=== PATIENT | female | born 1965 | race Caucasian/White ===

== ENCOUNTER 2023-09-24 07:05 | Outpatient (OUT) | payer BC, SELFPAY ==
--- NOTE | 2023-09-24 | MM_ITS ---
Patient Name: CRISTIANE BARRAGAN MR#: [id number] : 1965 Exam Date: 09/24/2023 Ordering Doctor: DR Shad Price . RADIOLOGY REPORT PROCEDURE: MM TOMOSYNTHESIS SCREENING BI COMPARISON: MAMMO SHARLA PETERG DIG, 02/19/2011. INDICATIONS: screening mammogram Calculator Name NCI Breast Cancer Risk Assessment Tool 5 Year Breast Cancer Risk 1.00% Lifetime Breast Cancer Risk 6.60% Personal Breast Cancer No Personal Ovarian Cancer No Treatments None Family Cancers None LOCATION: [facility] BREAST COMPOSITION: Heterogeneously dense,which may obscure small masses. FINDINGS: DIAGNOSTIC CATEGORY 0--INCOMPLETE: NEED ADDITIONAL IMAGING EVALUATION. Scattered benign-appearing calcifications are present. Scattered benign-appearing lymph nodes are present. RIGHT BREAST: Focal 2.5 x 1.7 x 2.0 cm nodule 3 o'clock position, mid breast. Spot imaging and ultrasound follow-up required. LEFT BREAST: Focal lobular 1.2 x 0.9 cm nodule upper outer quadrant, mid breast, this lesion appears changed in configuration from the prior exam. Spot imaging and ultrasound follow-up required. RECOMMENDATIONS: ADDITIONAL MAMMOGRAPHIC VIEWS REQUIRED: BILATERAL BREASTS - spot compression views ULTRASOUND: BILATERAL BREASTS PLEASE NOTE: A NORMAL MAMMOGRAM DOES NOT EXCLUDE THE POSSIBILITY OF BREAST CANCER. A CLINICALLY SUSPICIOUS PALPABLE LUMP SHOULD BE BIOPSIED. Dictated by: Delfino Lora MD on 09/24/2023 at 08:49 Approved by: Delfino Loar MD on 09/24/2023 at 09:11
== END 2023-09-24 07:06 | disposition home or self-care (01) ==
LOC: MAMMO 07:05
PROVIDERS: PCP Family Medicine; Visit Provider Obstetrics & Gynecology
DX: Z12.31 Encounter for screening mammogram for malignant neoplasm of breast (principal); N63.21 Unspecified lump in the left breast, upper outer quadrant; N63.15 Unspecified lump in the right breast, overlapping quadrants
CPT/HCPCS: 77063; 77067

== ENCOUNTER 2023-10-12 09:01 | Outpatient (OUT) | payer BC, SELFPAY ==
--- NOTE | 2023-10-12 09:06 | US_ITS ---
Patient Name: CRISTIANE BARRAGAN MR#: [id number] : 1965 Exam Date: 10/12/2023 Ordering Doctor: DR Shad Price . RADIOLOGY REPORT PROCEDURE: MM DIAGNOSTIC MAMMO BI, 10/12/2023, 09:12 US BREAST BI LIMITED, 10/12/2023, 09:36 COMPARISON: MM TOMOSYNTHESIS SCREENING BI, 09/24/2023. MAMMO SHARLA DIAG DIG, 02/19/2011. INDICATIONS: Mammogram Abnormal R92.8 Calculator Name NCI Breast Cancer Risk Assessment Tool 5 Year Breast Cancer Risk 1.00% Lifetime Breast Cancer Risk 6.50% Personal Breast Cancer No Personal Ovarian Cancer No Treatments None Family Cancers Grandfather-paternal with lung cancer at age 65. LOCATION: [facility] BREAST COMPOSITION: Heterogeneously dense,which may obscure small masses. FINDINGS: DIAGNOSTIC CATEGORY 2--BENIGN FINDING: RIGHT BREAST: Spot magnification views demonstrate persistence of a partially circumscribed 3.4 x 1.9 x 2.0 cm mass. Ultrasound evaluation demonstrates a corresponding 3.5 x 1.5 x 0.8 cm benign appearing cystic fluid collection at the 2 o'clock position. Annual screening mammography recommended. LEFT BREAST: Spot magnification views demonstrate persistence of a lobular mass within posterior upper-outer quadrant. A mammogram from February 19, 2011 demonstrates a similar appearing mass within the upper-outer quadrant suspected to represent a lymph node. Ultrasound evaluation demonstrates a 10 x 9 x 4 mm lymph node with central vascular hilum at the 1 o'clock position corresponding to the mammographic findings. Annual screening mammography is recommended. Findings discussed with Dr. Price via telephone on October 13, 2023 at 9:14 a.m. RECOMMENDATIONS: ROUTINE MAMMOGRAM AND CLINICAL EVALUATION IN 12 MONTHS. PLEASE NOTE: A NORMAL MAMMOGRAM DOES NOT EXCLUDE THE POSSIBILITY OF BREAST CANCER. A CLINICALLY SUSPICIOUS PALPABLE LUMP SHOULD BE BIOPSIED. Dictated by: Aquilino Butterfield M.D. on 10/13/2023 at 08:57 Approved by: Aquilino Butterfield M.D. on 10/13/2023 at 09:16
--- NOTE | 2023-10-12 09:35 | MM_ITS ---
Patient Name: CRISTIANE BARRAGAN MR#: [id number] : 1965 Exam Date: 10/12/2023 Ordering Doctor: DR Shad Price . RADIOLOGY REPORT PROCEDURE: MM DIAGNOSTIC MAMMO BI, 10/12/2023, 09:12 US BREAST BI LIMITED, 10/12/2023, 09:36 COMPARISON: MM TOMOSYNTHESIS SCREENING BI, 09/24/2023. MAMMO SHARLA DIAG DIG, 02/19/2011. INDICATIONS: Mammogram Abnormal R92.8 Calculator Name NCI Breast Cancer Risk Assessment Tool 5 Year Breast Cancer Risk 1.00% Lifetime Breast Cancer Risk 6.50% Personal Breast Cancer No Personal Ovarian Cancer No Treatments None Family Cancers Grandfather-paternal with lung cancer at age 65. LOCATION: [facility] BREAST COMPOSITION: Heterogeneously dense,which may obscure small masses. FINDINGS: DIAGNOSTIC CATEGORY 2--BENIGN FINDING: RIGHT BREAST: Spot magnification views demonstrate persistence of a partially circumscribed 3.4 x 1.9 x 2.0 cm mass. Ultrasound evaluation demonstrates a corresponding 3.5 x 1.5 x 0.8 cm benign appearing cystic fluid collection at the 2 o'clock position. Annual screening mammography recommended. LEFT BREAST: Spot magnification views demonstrate persistence of a lobular mass within posterior upper-outer quadrant. A mammogram from February 19, 2011 demonstrates a similar appearing mass within the upper-outer quadrant suspected to represent a lymph node. Ultrasound evaluation demonstrates a 10 x 9 x 4 mm lymph node with central vascular hilum at the 1 o'clock position corresponding to the mammographic findings. Annual screening mammography is recommended. Findings discussed with Dr. Price via telephone on October 13, 2023 at 9:14 a.m. RECOMMENDATIONS: ROUTINE MAMMOGRAM AND CLINICAL EVALUATION IN 12 MONTHS. PLEASE NOTE: A NORMAL MAMMOGRAM DOES NOT EXCLUDE THE POSSIBILITY OF BREAST CANCER. A CLINICALLY SUSPICIOUS PALPABLE LUMP SHOULD BE BIOPSIED. Dictated by: Aquilino Butterfield M.D. on 10/13/2023 at 08:57 Approved by: Aquilino Butterfield M.D. on 10/13/2023 at 09:16
== END 2023-10-12 09:02 | disposition home or self-care (01) ==
LOC: MAMMO 09:01
PROVIDERS: PCP Family Medicine; Visit Provider Obstetrics & Gynecology
DX: Z01.419 Encounter for gynecological examination (general) (routine) without abnormal findings (principal); R92.8 Other abnormal and inconclusive findings on diagnostic imaging of breast; Z80.1 Family history of malignant neoplasm of trachea, bronchus and lung; N63.21 Unspecified lump in the left breast, upper outer quadrant
CPT/HCPCS: 76642; 77066; 87624; G0145

== ENCOUNTER 2023-10-12 19:26 | Outpatient (REF) | payer BC, SELFPAY ==
[2023-10-15 11:08] LABS: Age Gdln ACOG Testing Note (.); HPV Aptima Negative (Negative); IGP, Aptima HPV, rfx 16/18,45 Note (.)
== END 2023-10-12 19:27 | disposition home or self-care (01) ==
LOC: LAB 19:26
PROVIDERS: PCP Family Medicine; Visit Provider Physician Assistant
DX: Z01.419 Encounter for gynecological examination (general) (routine) without abnormal findings (principal)
CPT/HCPCS: 87624; G0145

== ENCOUNTER 2023-10-15 08:54 | Outpatient (OUT) | payer BC, SELFPAY ==
--- NOTE | 2023-10-15 08:57 | XR_ITS ---
The [address] [address] Patient Name: CRISTIANE BARRAGAN MRN: [id number] date: 1965 Sex: F Assigned Patient Location: RAD Current Patient Location: RAD Accession/Order Number: [id number] Exam Date: 10/15/2023 09:20 Report Date: 10/15/2023 10:21 At the request of: LIU SOTO Procedure: XR DEXA axial skeleton EXAMINATION: XR DEXA axial skeleton HISTORY: Postmenopausal State COMPARISON: No relevant comparison available. TECHNIQUE: Dual-energy X-ray absorptiometry (DXA) was performed. FINDINGS: SPINE ANALYSIS: Average bone mineral density is 0.915 g/cm2. T-score (standard deviation relative to young adult mean): -2.2 . HIP ANALYSIS: Lowest bone mineral density is within the femoral neck, 0.77 g/cm2. T-score (standard deviation relative to young adult mean): -1.8 . XR/XR DEXA axial skeleton IMPRESSION: [employer] Classification: Osteopenia - Moderate Fracture Risk Electronically authenticated by: TIANA WILDE Date: 10/15/2023 10:21
--- OUTSIDE RECORDS SUMMARY | 2023-10-15 08:58 | XMS_ITS | CCD ---
Author Name Unknown Address [facility] [address] [place] [address] Organization [facility] Care Team Providers Care Paperhanger Contractor Name Role Phone MISC, DR REESE Attending Unavailable MISC, DR REESE Consulting Unavailable DEFRANCE, DR AREVALO Primary Care Unavailable MISC, DR REESE Admitting Unavailable DEFRANCE, DR AREVALO Attending Unavailable DEFRANCE, DR AREVALO Consulting Unavailable DEFRANCE, DR AREVALO Admitting Unavailable DEFRANCE, DR AREVALO Admitting Unavailable DEFRANCE, DR AREVALO Attending Unavailable DEFRANCE, DR AREVALO Consulting Unavailable Defrance , Mickey Silveira [facility] Wu Mcnamara MD, Rosa Nix Attending Unavail able Nathanael CASTAÑEDA, Mickey Silveira [facility] Wu Huffman MD, Mickey Silveira [facility] Wu Mcnamara MD, Rosa Nix Attending Unavail able Nathanael CASTAÑEDA, Mickey Silveira [facility] Wu Huffman MD, Mickey Silveira [facility] Wu Persaud MD, Dominique Mayen Attending Wu Huffman MD, Mickey Silveira [facility] Wu Persaud MD, Dominique Mayen Attending Wu Huffman MD, Mickey Silveira [facility] Wu Persaud MD, Dominique Mayen Attending Wu Huffman MD, Mickey Silveira [facility] Wu Huffman MD, Mickey Silveira [facility] Wu Persaud MD, Dominique Mayen Attending Wu Huffman MD, Mickey Silveira [facility] Wu Persaud MD, Dominique Mayen Attending Wu Sagastume APRN-DECORATING INSTRUCTOR, Glo Mayen Attending Tr Huffman MD, Mickey Silveira [facility] Wu LAGOS, Glo Mayen Attending Tr Huffman MD, Mickey Silveira [facility] Wu Mcnamara MD, Rosa Nix Attending Unavail Mickey Escobedo MD Primary Care LIU Velásquez Attending Unavailable Allergies Allergy Classification Reported Allergen(s) Allergy Type Date of Onset Reaction(s) Facility Acetaminophen / HYDROcodone (1 source) Acetaminophen / HYDROcodone Drug Allergy 6 [facility] Acetaminophen / oxyCODONE (1 source) Acetaminophen / oxyCODONE Drug Allergy 6 [facility] Amoxicillin / Clavulanate (1 source) Amoxicillin / Clavulanate Drug Allergy [facility] Corticosteroids (1 source) fluticasone Drug Allergy 6 [facility] Doxycycline (1 source) Doxycycline Drug Allergy 7 [facility] Opioid Agonists (1 source) traMADol Drug Allergy 6 [facility] Penicillins (antibiotic) (1 source) Penicillins Drug Allergy 6 [facility] Unclassified (1 source) Misc-Drug Drug allergy (disorder) 6 [facility] (1 source) Penicillin; Translations: [penicillin] Drug Allergy [facility] Problems Active Problems Problem Classification Problem Date Documented Da te Episodic/Chronic Unclassified (3 sources) CONTACT W/AND (SUSP) EXPOS COVID-19; Translations: [CONTACT W/AND (SUSP) EXPOS COVID-19] Onset: 02-11-2021 Viral infection (1 source) COVID-19; Translations: [COVID-19] Onset: 10-04-2020 Past or Other Problems Problem Classification Problem Date Documented Da te Episodic/Chronic Immunizations and screening for infectious disease (4 sources) Contact with and (suspected) exposure to other viral communicable diseases; Translations: [CONTCT EXPS OTH VIRL COMMUNICABL DZ] Onset: 09-02-2020 Episodic Unclassified (1 source) CONTACT W/AND (SUSP) EXPOS COVID-19; Translations: [CONTACT W/AND (SUSP) EXPOS COVID-19] Onset: 02-05-2021 Results Test Name Value Interpretation Reference Range Facil ity Allergy/Immunology Office/Cl inic Noteon 06-03-2022 Allergy/Immunolo gy Office/Clinic Note Chief Complaint 8 month follow up AR History of Present Illness Shelley Rosa is a 56 year old female in the office for 8 month follow up of AR. She states she feels her allergy symptoms are very well controlled at this time. She continues Marlyn and montelukast daily. She has been busy outside from sun up to sun down and is not interested in trialing off medications at this time. Once football season is over she will be outdoors less and will consider it Natalie continues monthly AIT with little to no itching, redness or swelling. Review of Systems General Symptoms Appetite change: No Fatigue: No Weakness: No Any frequent/recurrent infections: No Respiratory Symptoms Cough: No Shortness of breath: No Sputum production: No Wheezing: No EENT Symptoms Nasal discharge: No Nasal congestion: No Postnasal drainage: No Sore throat: No Any itching/watering/redne ss to eyes: No Cardiovascular Symptoms Chest pain pressure: No Gastrointestinal Symptoms Abdominal pain: No Constipation: No Diarrhea: No Nausea: No Vomiting: No Genitourinary Symptoms Decreased urine output: No Skin Symptoms Itching: No Rash: No Musculoskeletal Back pain: No Joint pain: No Joint stiffness: No Joint swelling: No Neurological Symptoms Headache: No Numbness: No Tremor: No Psychiatric Symptoms Anxiety: No Depression: No Hematologic/Lymphatic Symptoms Bruising:No Bleeding tendencies: No Physical Exam Vitals & Measurements HT: 170 cm WT: 85 kg WT: 85 kg (Dosing) BMI: 29.41 General: Alert, well nourished, no acute distress, hoarse voice. Eye: PERRL, EOMI, normal conjunctiva. HENT: Normocephalic, nonedematous nasal turbinates, moist oral mucosa. Neck: Supple, non-tender, no lymphadenopathy. Lungs: Clear to auscultation, non-labored respiration. Heart: Normal rate, regular rhythm, no murmur, gallop or edema. Skin: Skin is warm, dry and pink, no rashes or lesions. Neurologic: Awake, alert. Psychiatric: Cooperative, appropriate mood and affect. Assessment/Plan Acute allergic rhinitis due to animal hair and dander Acute allergic rhinitis due to fungal spores Acute allergic rhinitis due to pollen Physician Comments 1. Cough Chronic stable; managed with relaxed throat breathing techniques 2. Dyspnea Chronic stable; follow-up with pulmonology as planned [1] 3. Chronic allergic rhinitis due to pollen Stable -Discontinue Singulair 10 mg [1] daily, then after pollen season step-down Marlyn to prn only. -Continue allergy immunotherapy to dust mite, cat, dog, and ragweed pollen to reduce symptoms and medication use IT started 03/2019) [2] . Sensitizations to cat and dog have declined. Change to IT script is not indicated based on recent repeat testing. [2] Follow-up annually (April) 4. Oral allergy syndrome Resolved since starting immunotherapy along with meds. However has flared in past when off meds. Will see how she does off meds this year. Orders: fexofenadine, 1 tabs, Oral, Daily, PRN, # 90 tabs, 3 Refill(s), Pharmacy: [facility] [id number] AMB Allergy injection NC Problem List/Past Medical History Ongoing Chronic allergic rhinitis due to pollen Cough Dyspnea Oral allergy syndrome Historical No qualifying data Procedure/Surgical History BREAST RECONSTRUCTION DELIVERY Knee Surgery Liposuction Medications fexofenadine 180 mg oral tablet, See Instructions montelukast 10 mg oral tablet, 10 mg= 1 tabs, Oral, Daily, 3 refills Zoloft 25 mg oral tablet, 25 mg= 1 tabs, Oral, Daily Allergies penicillin (Headache) Social History Tobacco Never (less than 100 in lifetime) Use:. Family History Allergy: Mother. Asthma: Mother. Immunizations Vaccine Date Status SARS-CoV-2 (COVID-19) mRNA-1273 vaccine 12/10/2020 Given Comments : Original Free text Vaccine : Moderna COVID-19 vaccine Electronically signed by Domniique Persaud MD 06/03/22 10:51 EDT Electronically signed by She Quiles 06/03/2022 10:27 EDT Normal [facility] Provider Letteron 06-03-2022 Provider Letter Mickey Huffman, [address] [place] [address] Re: Septembere : 1965 Date of Visit: 06/03/2022 Dear Mickey, Thank you for the pleasure of contributing to September's care. Please see attached office note for my assessment and recommendations from today's visit. Let me know if you have any questions or concerns. Sincerely, Dominique Persaud MD Allergy/Immunology Neisha Driver Providers: The following document(s) were included in the letter: June 03, 2022 10:26:39 EDT - (06/03/2022) Office Visit Note Normal [facility] Covid-19 PCR (CVDTBH)on 01-17 Sample Type Test performed using RT-PCR from a nasopharyngeal collected specimen. Normal [facility] Comment on above: Performed By: #### CVDTBH #### [facility] [address] [place] [id number] Alfredo Forte SARS-CoV-2 (COVID-19) RNA CANDY+probe Ql (Unsp spec) Not detected Normal NOT DETECTED [facility] Comment on above: Result Comment: This test is not yet layne roved or cleared by the [place] FDA. When there are no FDA-approved or cleared tests available, and other criteria are met, FDA can make tests available under an emergency access mechanism called an Emergency Use Authorization (EUA). The EUA for this test is supported by the [place] Director of Health and Human Service's (HHS's) declaration that circumstances exist to justify the emergency use of in vitro diagnostics for the detection and/or diagnosis of the virus that causes COVID-19. This EUA will remain in effect (meaning this test can be used) for the duration of the COVID-19 declaration justifying emergency of IVDs, unless it is terminated or revoked by FDA (after which the test may no longer be used). When diagnostic testing is negative, the possibility of a false negative should be considered in the context of a patient's recent exposures and the presence of clinical signs and symptoms consistent with SARS-CoV-2. Performed By: #### C VDTBH #### [facility] [address] [place], [place] [address] Alfredo Forte Covid-19 PCR (CVDTBH)on EUA Statement SEE BELOW Normal [facility] Comment on above: Result Comment: This test is not yet layne roved or cleared by the [place] FDA. When there are no FDA-approved or cleared tests available, and other criteria are met, FDA can make tests available under an emergency access mechanism called an Emergency Use Authorization (EUA). The EUA for this test is supported by the [place] of Health and Human Service?s (HHS?s) declaration that circumstances exist to justify the emergency use of in vitro diagnostics for the detection and/or diagnosis of the virus that causes COVID-19. This EUA will remain in effect (meaning this test can be used) for the duration of the COVID-19 declaration justifying emergency of IVDs, unless it is terminated or revoked by FDA (after which the test may no longer be used). When diagnostic testing is negative, the possibility of a false negative should be considered in the context of a patients recent exposures and the presence of clinical signs and symptoms consistent with SARS-CoV-2. Performed By: #### C VDTB #### [facility] [address] [place] [address] Alfredo Forte SARS-CoV-2 (COVID-19) RNA CANDY+probe Ql (Unsp spec) Detected Normal NOT DETECTED [facility] Comment on above: Result Comment: This test is not yet layne roved or cleared by the [place] FDA. When there are no FDA-approved or cleared tests available, and other criteria are met, FDA can make tests available under an emergency access mechanism called an Emergency Use Authorization (EUA). The EUA for this test is supported by the [place] of Health and Human Service's (HHS's) declaration that circumstances exist to justify the emergency use of in vitro diagnostics for the detection and/or diagnosis of the virus that causes COVID-19. This EUA will remain in effect (meaning this test can be used) for the duration of the COVID-19 declaration justifying emergency of IVDs, unless it is terminated or revoked by FDA (after which the test may no longer be used). Performed By: #### C VDTB #### [facility] [address] [place] [address] Alfredo Forte COVID-19 PCRon 08-30-2020 SARS-CoV-2 (COVID-19) RNA CANDY+probe Ql (Unsp spec) Not detected Normal Not Detected [facility] Comment on above: Result Comment: This nucleic acid amplif ication test was developed and its performance characteristics determined by [facility]. Nucleic acid amplification tests include PCR and TMA. This test has not been FDA cleared or approved. This test has been authorized by FDA under an Emergency Use Authorization (EUA). This test is only authorized for the duration of time the declaration that circumstances exist justifying the authorization of the emergency use of in vitro diagnostic tests for detection of SARS-CoV-2 virus and/or diagnosis of COVID-19 infection under section 564(b)(1) of the Act, 21 U.S.C. 360bbb-3(b) (1), unless the authorization is terminated or revoked sooner. When diagnostic testing is negative, the possibility of a false negative result should be considered in the context of a patient's recent exposures and the presence of clinical signs and symptoms consistent with COVID-19. An individual without symptoms of COVID-19 and who is not shedding SARS-CoV-2 virus would expect to have a negative (not detected) result in this assay. Performed By: #### C VDPCR #### [facility] [address] [place] [address] Alfredo Forte Encounters Encounter Date Encounter Type Care Provider Facility Start: 10-12-2023 End: 10-12-2023 ambulatory LIU SOTO Not Available Start: 05-10-2023 ambulatory Glo paredes AREA FIELD WORKER-DECORATING INSTRUCTOR Facility:[facility] Start: 05-04-2023 End: 05-05-2023 ambulatory Glo Sagastume AREA FIELD WORKER-DECORATING INSTRUCTOR Facility:[facility] Start: 02-17-2023 End: 02-18-2023 ambulatory Mickey Huffman MD Facility:[facility] Start: 01-20-2023 End: 01-21-2023 ambulatory Mickey Huffman MD Facility:[facility] Start: 12-23-2022 End: 12-24-2022 ambulatory Mickey Huffman MD Facility[facility] Start: 11-26-2022 End: 11-27-2022 ambulatory Rosa Mcnamara MD Facility:[facility] Start: 10-29-2022 ambulatory Mickey Salguero Facility:[facility] Start: 10-07-2022 ambulatory Mickey Salguero Facility:[facility] Start: 09-09-2022 End: 09-10-2022 ambulatory Mickey Huffman MD Facility:[facility] Start: 07-29-2022 End: 07-30-2022 ambulatory Dominique Persaud MD Facility:[facility] Start: 07-01-2022 End: 07-02-2022 ambulatory Dominique Persaud MD Facility:[facility] Start: 06-09-2022 End: 06-10-2022 ambulatory Mickey Huffman MD Facility[facility] Start: 06-03-2022 End: 06-04-2022 ambulatory Dominique Persaud MD Facility[facility] Start: 02-05-2021 End: 02-05-[address] DOCTOR HUBBARD Facility:[facility] Start: 09-20-2020 End: 09-21-[address] MICKEY HUFFMAN Facility:[facility] Start: 08-28-2020 End: 08-29-[address] MICKEY HUFFMAN Facility:[facility] Payers Date Payer Category Payer Unknown [id number] 2019 Unknown 1965 Unknown [id number] .16.84 [id number] 1965 Unknown [id number] .16.84 [id number] 1965 Unknown [id number] .16.84 [id number] 1965 Unknown [id number] 2.16. 840.1.279314.3.579.2.196 1965 Unknown [id number] 2.. 840.1.675197.3.579.2.196 1965 Unknown [id number] 2.16. 840.1.761191.3.579.2.196 1965 Unknown [id number] 2.. 840.1.229327.3.579.2.196 1965 Unknown [id number] 2.16. 840.1.038625.3.579.2.196 1965 Unknown [id number] 2.16. 840.1.986800.3.579.2.196 1965 Unknown [id number] 2.16. 840.1.687651.3.579.2.196 1965 Unknown [id number] 2.16. 840.1.615976.3.579.2.196 1965 Unknown [id number] 2.16. 840.1.862470.3.579.2.196 1965 Unknown [id number] 2.16. 840.1.896777.3.579.2.196 1965 Unknown [id number] 2.16. 840.1.717841.3.579.2.196 1965 Unknown [id number] 2.16. 840.1.615468.3.579.2.196 1965 Unknown [id number] 2.16. 840.1.790699.3.579.2.196 1965 Unknown [id number] 2.16.840 .[id number] 1959 Unknown [id number] Summary Purpose Family History No Family History Records FoundNo Family History Records FoundNo Family History Records Found Advance Directives No Advanced Directives Records FoundNo Advanced Directives Records FoundNo Advanced Directives Records Found Additional Source Comments INFORMATION SOURCE (unrecogn ized section and content) DATE CREATED AUTHOR 02/12/2021 [facility] DATE CREATED AUTHOR AUTHOR'S ORGANIZ ATION 05/10/2023 [facility] DATE CREATED AUTHOR AUTHOR'S ORGANIZ ATION 10/14/[address] [facility] FOR RECORDS PERTAINING TO PATIENTS WHO ARE OR HAVE BEEN ENROLLED IN A CHEMICAL DEPENDENCY/SUBSTANCEABUSE PROGRAM, SOME INFORMATION MAY BE OMITTED. This clinical summary was aggregated from multiple sources. Caution should be exercised in using it in the provision of clinical care. This summary normalizes information from multiple sources, and as a consequence, information in this document may materially change the coding, format and clinical context of patient data. In addition, data may be omitted in some cases. CLINICAL DECISIONS SHOULD BE BASED ON THE PRIMARY CLINICAL RECORDS. [facility] [employer] [facility]. provides no warranty or guarantee of the accuracy or completeness of information in this document.
== END 2023-10-15 08:55 | disposition home or self-care (01) ==
LOC: RAD 08:54
PROVIDERS: PCP Family Medicine; Visit Provider Physician Assistant
DX: M85.80 Other specified disorders of bone density and structure, unspecified site (principal); Z78.0 Asymptomatic menopausal state
CPT/HCPCS: 77080